=== PATIENT | female | born 1985 | race Caucasian/White ===

== ENCOUNTER 2019-05-12 20:27 | Emergency (ER) | payer OTHER, BC ==
[~2019-05-12] VITALS: Ht 165.1 cm; Wt 68.4 kg
[2019-05-12 20:28] VITALS: BP 128/79
--- NOTE | 2019-05-12 20:35 | NUR ---
NO ANGIEDERMA NO SOB PT IS JUST ANXIOUS
--- NOTE | 2019-05-12 20:51 | NUR ---
HALIE SINHA IN TO EVAL PT. AND DISCUSS POC WITH PT. AND FAMILY AT BS.
== END 2019-05-12 21:48 | disposition home or self-care (01) ==
LOC: ED 20:40
DX: R21 Rash and other nonspecific skin eruption (principal)
CPT/HCPCS: 99283; Q0177